=== PATIENT | female | born 1935 | race Caucasian/White ===

== ENCOUNTER → 2018-09-13 13:11 | Outpatient (CLI) | payer OTHER, SELFPAY | PROVIDERS: Family Provider Family Medicine; PCP Family Medicine; Visit Provider Physician Assistant | DX: L02.31 Cutaneous abscess of buttock (principal) | CPT/HCPCS: 87070; 87075; 87077; 87147; 87186; 87205 ==

== ENCOUNTER 2020-08-09 22:01 | Observation (INO) | payer OTHER, SELFPAY ==
[2020-08-09 22:05] VITALS: BP 154/81; PULSE 74; RESP 22; TEMP 36.5; O2SAT 97
--- NOTE | 2020-08-09 22:06 | DI.RAD.S_ITS ---
PROCEDURE: XR CHEST 1V INDICATIONS: syncope TECHNIQUE: One view of the chest was acquired. COMPARISON: None. FINDINGS: Surgical changes and devices: None. Lungs and pleura: Lungs are clear. No pleural effusions or pneumothorax. Mediastinum: Mediastinal contours appear normal. Heart size is normal. Bones and chest wall: No suspicious bony lesions. Overlying soft tissues appear unremarkable. IMPRESSION: No acute cardiopulmonary abnormality. This report is concordant with the overnight preliminary interpretation. Dictated by: Seth Medrano M.D. on 08/10/2020 at 7:18 Approved by: Seth Medrano M.D. on 08/10/2020 at 7:18
--- NOTE | 2020-08-09 22:21 | ED_ITS ---
HPI - Syncope General Chief Complaint: Syncope Stated Complaint: Syncope Time Seen by Provider: 08/09/20 22:06 Source: patient and EMS Mode of arrival: EMS Limitations: no limitations History of Present Illness HPI narrative: 85-year-old female nonsmoker with history of hypertension presents by EMS for evaluation of a syncopal episode which occurred just prior to arrival. She was in her normal state of health up until the event and had been feeling just fine. She was out to dinner with family and seated at a table when she began to feel lightheaded, became diaphoretic, clammy and family friend eased her to the floor. She did completely lose consciousness briefly and it is reported that she was essentially back at her baseline by the time she was eased to the floor. There was no fall or injury. She did lose control of her bladder. She denies any new medications or dietary change. She had 1 beer minda ier in the day. She denies any recent exertional fatigue, shortness of breath, chest pain, diaphoresis or other. She denies any recent nausea, vomiting or diarrhea. She has had no fever or chills. To have been unprovoked as she was not changing position, coughing, in pain. MD complaint: loss of consciousness Onset (ago): minute(s) -: second(s) Description of event: incontinence Prodromal symptoms: lightheaded and diaphoresis Witnessed: yes - by bystander Context: at rest Injuries sustained associated with event: none Current symptoms: none Treatments prior to arrival: none Related Data Home Medications Medication Instructions Recorded Confirmed [GLUCOSAMINE] #0 09/15/10 09/13/18 MULTIVITAMIN (One Daily #0 11/25/10 09/13/18 Multivitamin) [MELATONIN] #0 12/25/10 09/13/18 acetaminophen [Tylenol Extra 500 mg KS Q4HP #0 01/15/13 09/13/18 Strength] amlodipine [Norvasc] 10 mg PO QDAY #0 01/15/13 09/13/18 losartan 100 mg PO QDAY #0 01/15/13 09/13/18 cholecalciferol (vitamin D3) 1,000 u PO QDAY #0 06/21/17 09/13/18 [Vitamin D3] naproxen sodium [Aleve] 220 mg PO BIDCC PRN #0 06/21/17 09/13/18 Allergies Allergy/AdvReac Type Severity Reaction Status Date / Time hydrochlorothiazide Allergy Unknown HANDS/FEET Verified 09/13/18 12:24 [HYDROCHLOROTHIAZIDE] PEELED Sulfa (Sulfonamide Allergy Unknown RASH Verified 09/13/18 12:24 Antibiotics) [SULFA (SULFONAMIDE ANTIBIOTICS)] Review of Systems Constitutional Constitutional: Denies chills, Denies fatigue, Denies fever(s), Denies frequent falls, Denies lethargy and Denies weakness Eyes Eyes: Denies change in vision, Denies eye discharge, Denies irritation and Denies loss of vision ENT Ears, Nose, Mouth, and Throat: Denies change in voice, Denies dizziness, Denies neck pain, Denies sore throat and Denies throat swelling Cardiovascular Cardiovascular: Denies chest pain, Reports syncope, Denies irregular heart rhythm, Denies lightheadedness, Denies palpitations, Denies dyspnea, Denies dy spnea on exertion and Denies orthopnea Respiratory Respiratory: Denies cough, Denies dyspnea, Denies dyspnea on exertion and Denies wheezing Gastrointestinal Gastrointestinal: Denies abdominal pain, Denies change in bowel habits, Denies diarrhea, Denies nausea and Denies vomiting Musculoskeletal Musculoskeletal: Denies neck pain and Denies numbness Integumentary/Breasts Skin/Breast: Denies pruritus, Denies erythema, Denies rash and Denies wounds Neurologic Neurologic: Denies behavioral changes, Denies confusion, Denies dizziness, Reports syncope, Denies frequent falls, Denies loss of vision, Denies numbness and Denies weakness Psychiatric Psychiatric: Denies anxiety, Denies behavioral changes, Denies confusion, Denies depression, Denies homicidal ideation and Denies suicidal ideation Endocrine Endocrine: Denies fatigue, Denies flushing and Denies palpitations Hematologic/Lymphatic Hematologic/Lymphatic: Denies easy bruising Allergic/Immunologic Allergic/Immunologic: Denies urticaria, Denies throat swelling and Denies wheezing Patient History Social History Smoking Status: Never smoker Smoking Status: Never smoker Exam Narrative Exam Narrative: GENERAL: [85] year old patient appears stated age. Well- nourished, well-developed patient, in mild distress. GCS 15 HEAD: Atraumatic. Normocephalic. EYES: Pupils equal round and reactive. Extraocular motions intact. No scleral icterus. No injection or drainage. ENT: Nose without bleeding, purulent drainage. Throat without erythema, tonsillar hypertrophy or exudate. Airway patent. NECK: Trachea midline. Non tender CARDIOVASCULAR: Regular rate and rhythm without murmurs, gallops, or rubs. RESPIRATORY: Clear to auscultation. Breath sounds equal bilaterally. No wheezes, rales, or rhonchi. GASTROINTESTINAL: Abdomen soft, non-tender, nondistended. EXTREMITIES: No edema or joint tenderness. BACK: Nontender without deformity or crepitance. No flank tenderness. NEURO: AOx3. SKIN: No rash or erythema of visible areas Initial Vital Signs Initial Vital Signs: Vital Signs Temperature 97.7 F 08/09/20 22:05 Pulse Rate 74 08/09/20 22:05 Respiratory Rate 22 08/09/20 22:05 Blood Pressure 154/81 H 08/09/20 22:05 Pulse Oximetry 97 08/09/20 22:05 Course Orders Ordered: ED Orders 08/09/20 21:40 Complete Blood Count AUTO DIFF Stat Comprehensive Metabolic Panel Stat NT-proBNP (BNP-Adult 18+) Stat Prothrombin Time INR Stat Troponin & CK Cardiac Panel Stat 08/09/20 22:06 XR chest 1V Stat EKG-12 Lead Stat 08/09/20 22:15 COVID19 - ADMIT (WELLNESS NURSE swab/PCR) Stat Potassium Chloride 40 meq/ (Sodium Chloride) 520 mls @ 130 mls/hr IV NOW ONE Stop: 08/10/20 02:45 Last Admin: 08/09/20 22:56 Dose: 130 mls/hr Documented by: Vital Signs Vital signs: Vital Signs - 8 hr 08/09/20 22:05 Temperature 97.7 F Pulse Rate 74 Respiratory Rate 22 Blood Pressure 154/81 H Pulse Oximetry 97 MDM - Syncope Lab Data Result diagrams: 08/09/20 21:40 08/09/20 21:40 Labs: Lab Results 08/09/20 08/09/20 08/09/20 Range/Units 21:40 21:40 21:40 WBC 10.9 (4.5-11.0) X10^3/uL RBC 4.60 (4.0-5.2) X10^6/uL Hgb 14.0 (12.0-16.0) g/dL Hct 40.4 (36-46) % MCV 87.7 (80-100) fL MCH 30.5 (26-34) PG MCHC 34.8 (30-36) % RDW 13.7 (11.6-14.8) % Plt Count 344 (150-400) X10^3/uL Neut % (Auto) 59.6 (50-75) % Lymph % (Auto) 30.1 (25-40) % [place] % (Auto) 7.9 (3-14) % Eos % (Auto) 1.6 L (2-4) % Baso % (Auto) 0.8 (0-2) % Neut # (Auto) 6500 (7063-1769) /uL Lymph # (Auto) 3300 (7361-5589) /uL [place] # (Auto) 900 (0-900) /uL Eos # (Auto) 200 (0-450) /uL Baso # (Auto) 100 (0-100) /uL PT 11.8 (10.1-12.7) SECONDS INR 1.0 (0.9-1.3) Sodium 137 (137-145) mmol/L Potassium 3.1 L (3.4-5.1) mmol/L Chloride 96 L (98-107) mmol/L Carbon Dioxide 31 (22-32) mmol/L BUN 26 H (7-17) mg/dL Creatinine 0.95 (0.52-1.04) mg/dL Estimated GFR 56.0 L (>60) mL/min BUN/Creatinine Ratio 27.4 H (6-22) Glucose 114 H (80-110) mg/dL Calcium 10.3 H (8.4-10.2) mg/dL Total Bilirubin 0.2 (0.2-1.3) mg/dL AST 31 (14-36) IU/L ALT 19 (<35) IU/L Alkaline Phosphatase 67 (38-126) U/L Total Creatine Kinase 98 (30-135) U/L CK-MB (CK-2) TNP CK-MB (CK-2) Rel Index TNP Troponin I < 0.012 (0.01-0.034) ng/mL NT-Pro-B Natriuret Pep 216 (<450) pg/mL Total Protein 7.1 (6.3-8.2) g/dL Albumin 4.4 (3.5-5.0) g/dL Globulin 2.7 (1.7-4.1) g/dL Albumin/Globulin Ratio 1.6 (1.0-2.8) MDM Narrative Medical decision making narrative: Patient will require hospitalization given l ack of any obvious provocation of her syncopal episode. She states that she has been her normal state of health, was sitting still at dinner when she collapsed. There was no change in position or other provoking event. She will require telemetry and likely echocardiogram Discharge Plan Departure Patient Disposition: Admitted as Observation Clinical Impression: Syncope and collapse
[2020-08-09 22:22] LABS: Add Manual Diff / Slide Review NO; Basophils Absolute Auto 100 /uL (0-100); Basophils Percent Auto 0.8 % (0-2); Eosinophils Absolute Auto 200 /uL (0-450); Eosinophils Percent Auto 1.6 % (2-4); Hematocrit 40.4 % (36-46); Lymphocytes Absolute Auto 3300 /uL (1100-4500); Lymphocytes Percent Auto 30.1 % (25-40); Mean Corpuscular HGB Conc 34.8 % (30-36); Mean Corpuscular Hemoglobin 30.5 PG (26-34); Mean Corpuscular Volume 87.7 fL (80-100); Monocytes Absolute Auto 900 /uL (0-900); Monocytes Percent Auto 7.9 % (3-14); Neutrophils Absolute Auto 6500 /uL (1500-7000); Neutrophils Percent Auto 59.6 % (50-75); Platelet Count 344 X10^3/uL (150-400); Red Cell Distribution Width 13.7 % (11.6-14.8); White Blood Cell Count 10.9 X10^3/uL (4.5-11.0)
[2020-08-09 22:30] LABS: Prothrombin Time 11.8 SECONDS (10.1-12.7)
[2020-08-09 22:34] LABS: Alanine Aminotransferase 19 IU/L (<35); Albumin 4.4 g/dL (3.5-5.0); Albumin Globulin Ratio 1.6 (1.0-2.8); Alkaline Phosphatase 67 U/L (38-126); Aspartate Aminotransferase 31 IU/L (14-36); BUN Creatinine Ratio 27.4 (6-22); Bilirubin Total 0.2 mg/dL (0.2-1.3); Blood Urea Nitrogen 26 mg/dL (7-17); Calcium 10.3 mg/dL (8.4-10.2); Carbon Dioxide 31 mmol/L (22-32); Chloride 96 mmol/L (98-107); Creatine Kinase 98 U/L (30-135); Globulin 2.7 g/dL (1.7-4.1); Glucose 114 mg/dL (80-110); HEMOLYSIS < 15 (0-50); Potassium 3.1 mmol/L (3.4-5.1); Sodium 137 mmol/L (137-145); Total Protein 7.1 g/dL (6.3-8.2)
[2020-08-09 22:46] LABS: NT-proBNP (BNP-Adult 18+) 216 pg/mL (<450); Troponin I < 0.012 ng/mL (0.01-0.034)
[2020-08-09] MEDS: POTASSIUM CHLORIDE 40 MEQ in SODIUM CHLORIDE 0.9% 500 ML 130 ML IV (22:56)
[2020-08-09 23:16] LABS: COVID19 - ADMIT (NP swab/PCR) Negative (Negative)
[2020-08-09 23:58] VITALS: BP 144/111; PULSE 76; RESP 27; O2SAT 95
[2020-08-10] VITALS: BP 143/81; PULSE 75; RESP 22; O2SAT 94
--- NOTE | 2020-08-10 | DI.ECHO.S_ITS ---
[facility]---------+ [facility] +---------+ : : [address] : : : : [id number] : : : : Phone: [phone]+ Echocardiogram Report + + :Name: JOSESITO AVENDAÑO Study Date: 08/10/2020 Height: 62.5 in: :[facility] ReadingLocation: Weight: 167 lb : : Gender: Female BSA: 1.8 m2 : :: 1935 Age: 85 yrs BP: 154/86 mmHg: :Reason For Study: SYNCOPE WITH INCONTINENCE : :Ordering Physician: JOIE, : :MAURI Performed By: Daniela Golden : :Referring: MAURI SALTER : + + Interpretation Summary 1) Normal left ventricular thickness, size, wall motion, and systolic function (EF 60-65%). 2) Normal right ventricular size and function. 3) No significant valvular abnormalities. 4) No prior Echo available for comparison. Procedure: A two-dimensional transthoracic echocardiogram with color flow and Doppler was performed. The study quality was technically adequate. There is no prior echocardiogram noted for this patient. The patient was in sinus rhythm with heart rates between 54-67 bpm during the exam. Left Ventricle: The left ventricle is normal in size and wall thickness. The ejection fraction is estimated to be 60-65%. Left ventricular systolic function appears normal without focal wall motion abnormalities. Diastolic parameters suggest a relaxation abnormality of the left ventricle, consistent with probable normal filling pressures. Right Ventricle: The right ventricle is normal in size and function. Atria: The left atrium is moderately dilated. The right atrium is moderately dilated. There is no Doppler evidence for an interatrial shunt. Mitral Valve: The mitral valve is normal in structure and function. There is mild mitral regurgitation. Aortic Valve: The aortic valve is trileaflet. The aortic valve opens well. There is no aortic valve stenosis. No aortic regurgitation is present. Tricuspid Valve: The tricuspid valve is normal in structure and function. There is mild tricuspid regurgitation. The right ventricular systolic pressure is estimated to be at least 34 mmHg based on an estimated right atrial pressure of 3 mm Hg. Pulmonic Valve: The pulmonic valve leaflets are thin and pliable; valve motion is normal. There is mild pulmonic regurgitation. Great Vessels: The aortic root is normal size. The dimensions of the ascending aorta are normal. The IVC is of normal diameter and collapses greater than 50% with a sniff. This suggests a low right atrial pressure of 3 mm Hg. Pericardium/ Pleura There is no pericardial effusion. There is no pleural effusion. MMode/2D Measurements & Calculations LVIDd: 4.7 cm LVOT diam: 2.0 cm LVIDs: 2.9 cm Ao root diam: 3.0 cm FS: 37.7 % asc Aorta Diam: 3.6 cm EPSS: 0.89 cm IVSd: 0.98 cm LVPWd: 0.88 cm LV encinas. diameter/BSA (cm/m^2): 2.6 LV sys. diameter/BSA (cm/m^2): 1.6 LA A2 area: 26.0 cm2 RA long axis: 5.6 cm LA A4 area: 18.2 cm2 RA area: 21.1 cm2 LA length (vol): 5.6 cm RA vol: 67.3 ml LA vol: 72.1 ml RA : 37.8 ml/m2 LA vol index: 40.5 ml/m2 IVC diam: 1.5 cm RVD1 (basal): 3.2 cm TAPSE: 2.4 cm Doppler Measurements & Calculations Ao V2 max: 117.1 cm/sec LVOT Max Massimo: 101.8 cm/sec Ao V2 mean: 80.0 cm/sec LV V1 max P.1 mmHg Ao max P.5 mmHg LV V1 VTI: 22.7 cm Ao mean P.9 mmHg GISSELLE(I,D): 2.5 cm2 Ao V2 VTI: 27.4 cm GISSELLE(V,D): 2.6 cm2 sev ratio: 0.83 GISSELLE indexed to BSA (cm^2/m^2): 1.4 MV E max massimo: 62.0 cm/sec TR max massimo: 276.9 cm/sec MV A max massimo: 105.5 cm/sec TR max P.7 mmHg MV E/A: 0.59 PA V2 max: 54.3 cm/sec Med Peak E' Massimo: 4.7 cm/sec PA V2 mean: 36.2 cm/sec E/E' med: 13.1 PA mean P.62 mmHg Lat Peak E' Massimo: 9.0 cm/sec PA pr(Accel): 32.8 mmHg E/E' lat: 6.9 E/e' average: 10.0 MV dec time: 0.21 sec SVLVOT): 68.5 ml Reading Physician:01:10 PM
--- NOTE | 2020-08-10 00:11 | P.HP_ITS ---
History of Present Illness History of Present Illness Date Patient Seen: 08/10/20 Time Patient Seen: 00:11 Chief complaint: Syncope Narrative: 85-year-old nonsmoker female with history of hypertension is admitted for observation from the ED status post syncopal episode during a family potluck dinner in which she was eating richer/saltier foods than normal. Reports that she was in her usual state of health up until the event and had been feeling just fine. Had 1 beer about 1 hour before. While seated at the table, she began to feel lightheaded, became diaphoretic, clammy, and then briefly, lost consciousness. A family friend sitting next to her, gently eased her to the floor and by the time she reached the floor, she was back at her baseline. She was noted to be incontinent of urine during the event. Reports that the incident was unprovoked with no coughing, bearing down, recent bowel movement, or change in position. Denies any chest pain. No recent dietary or medication changes other than the rich food at the dinner. No recent travel. She had not been short of breath, fatigued, or otherwise diaphoretic. No nausea, vomiting, or diarrhea. No fever chills. She had no tonic-clonic movements. No history of seizure disorder. Vital signs upon admission to the ED included a temperature of 97.7?, pulse 74, respirations 22, blood pressure 154/81, O2 saturation 92% on room air. Lab workup remarkable for a low potassium at 3.1 that was repleted. She was dehydrated with a BUN of 26 and a glucose of 114. Chest x-ray, EKG, and troponin were notably negative. Reports that she is feeling fine this morning, back to her baseline. Uneventful night. Past medical history: Hypertension Hyperlipidemia Nocturia Daytime somnolence Arthritis Vertigo Insomnia Past surgical history: Appendectomy Total knee arthroplasty Cataract extraction Family history: Mother: Hypertension Social history: to Derek, 12 years of education. Patient History Family & Social History Safety & Behavioral: Feels Safe in Current Yes Environment Been Physically Hurt or No Threatened By a Person Tobacco & Substance use: Smoking Status Never smoker alcohol intake frequency 0-2 drinks per day Substance Use Type does not use Meds Home Medications and Allergies Home Medications Medication Instructions Recorded Confirmed Type acetaminophen [Tylenol Extra 500 mg [place] Q4HP #0 01/15/13 08/10/20 History Strength] amlodipine [Norvasc] 10 mg PO QDAY #0 01/15/13 08/10/20 History losartan 25 mg PO QDAY #0 01/15/13 08/10/20 History hydrochlorothiazide 50 mg PO DAILY 08/10/20 08/10/20 History Allergies Allergy/AdvReac Type Severity Reaction Status Date / Time hydrochlorothiazide Allergy Unknown HANDS/FEET Verified 09/13/18 12:24 [HYDROCHLOROTHIAZIDE] PEELED Sulfa (Sulfonamide Allergy Unknown RASH Verified 09/13/18 12:24 Antibiotics) [SULFA (SULFONAMIDE ANTIBIOTICS)] Review of Systems Review of Systems ROS: Yes All systems reviewed with the patient and are negative except as otherwise documented Exam Vital Signs (past 8 hours): - 08/09/20 22:05 08/09/20 23:58 08/10/20 00:00 Temperature 97.7 F Pulse Rate 74 76 75 Respiratory Rate 22 27 H 22 Blood Pressure 154/81 H 144/111 H 143/81 H Pulse Oximetry 97 95 94 Oxygen Delivery Method Room Air Narrative Exam Narrative: GENERAL: Alert and oriented, appearing stated age and in no acute distress. HEENT: Head normocephalic/atraumatic. Pupils equal, round, and reactive to l ight and accomodation. Extraocular muscles intact. Tympanic membranes clear. Nasal mucosa moist, septum midline. Oral mucosa moist, no lesions. Neck soft and supple, no lymphadenopathy. LUNGS: Clear to ausculation bilaterally, no wheezes, rhonchi or rales. CV: Normal S1 and S2 with regular rate and rhythm, no audible murmurs, rubs or gallops. ABDOMEN: Soft, non-tender, non-distended, no organomegaly. Positive bowel sounds. EXTREMITIES: No clubbing, cyanosis, or edema. NEURO: Cranial nerves II through XII grossly intact, no focal deficits. PSYCH: Alert and oriented x 3. SKIN: No concerning lesions. Objective Labs Result Diagrams: 08/10/20 05:31 08/10/20 05:31 Labs: Laboratory Results - last 24 hr 08/09/20 08/09/20 08/09/20 21:40 21:40 21:40 WBC 10.9 RBC 4.60 Hgb 14.0 Hct 40.4 MCV 87.7 MCH 30.5 MCHC 34.8 RDW 13.7 Plt Count 344 Neut % (Auto) 59.6 Lymph % (Auto) 30.1 [place] % (Auto) 7.9 Eos % (Auto) 1.6 L Baso % (Auto) 0.8 Neut # (Auto) 6500 Lymph # (Auto) 3300 [place] # (Auto) 900 Eos # (Auto) 200 Baso # (Auto) 100 PT 11.8 INR 1.0 Sodium 137 Potassium 3.1 L Chloride 96 L Carbon Dioxide 31 BUN 26 H Creatinine 0.95 Estimated GFR 56.0 L BUN/Creatinine Ratio 27.4 H Glucose 114 H Calcium 10.3 H Total Bilirubin 0.2 AST 31 ALT 19 Alkaline Phosphatase 67 Total Creatine Kinase 98 CK-MB (CK-2) TNP CK-MB (CK-2) Rel Index TNP Troponin I < 0.012 NT-Pro-B Natriuret Pep 216 Total Protein 7.1 Albumin 4.4 Globulin 2.7 Albumin/Globulin Ratio 1.6 SARS-CoV-2 (PCR) 08/09/20 22:15 WBC RBC Hgb Hct MCV MCH MCHC RDW Plt Count Neut % (Auto) Lymph % (Auto) [place] % (Auto) Eos % (Auto) Baso % (Auto) Neut # (Auto) Lymph # (Auto) [place] # (Auto) Eos # (Auto) Baso # (Auto) PT INR Sodium Potassium Chloride Carbon Dioxide BUN Creatinine Estimated GFR BUN/Creatinine Ratio Glucose Calcium Total Bilirubin AST ALT Alkaline Phosphatase Total Creatine Kinase CK-MB (CK-2) CK-MB (CK-2) Rel Index Troponin I NT-Pro-B Natriuret Pep Total Protein Albumin Globulin Albumin/Globulin Ratio SARS-CoV-2 (PCR) Negative Assessment & Plan Assessment & Plan narrative: 1. Syncope, suspect postprandial vasovagal syncope versus metabolic syncope due to hypokalemia versus cardiac syncope Plan: Will rule out acute coronary syndrome with serial cardiac enzymes. Echo in the morning to look at any underlying structural heart disease. Continuous telemetry. Repeat labs in the morning. Will proceed with stress test if needed. 2. Hypertension, chronic Plan: Continue home medications of losartan 25 mg p.o. q.day and amlodipine 10 mg p.o. q.day. 3. Hypokalemia, new Plan: Will replete. BMP in the morning. 4. Hyperlipidemia, chronic Plan: Patient declines statin. Will follow low-cholesterol diet. Code: Full DVT prophylaxis: SCDs Code: Negative Disposition: Anticipate 1 night. Quality MIPS - Admit Advanced Care Plan / Current Medications Measures: #47 ? Advanced Care Plan Clinician documentation instruction: document at admission. [] I confirmed that the patient's Advance Care Plan is present, code status is documented, or surrogate decision maker is listed in the patient?s medical record. [SATISFIES MIPS PERFORMANCE] If Yes, Stop Here [] The patient?s Advance Care plan is not present because: (select) [MIPS PERFORMANCE EXCEPTION/EXCLUSION] [] I confirmed today that the patient does not wish or was not able to name a surrogate decision maker or provide an Advance Care Plan. [] Hospice care is currently being provided or has been provided this calendar year [] I did NOT confirm today the presence of an Advance Care Plan or surrogate decision maker documented within the patient's medical record. [DOES NOT SATISFY MIPS PERFORMANCE] #130 - Documentation of Current Medications in the Medical Record Clinician documentation instruction: use macro the first time you see a patient. [] I have utilized all available immediate resources to obtain, update, or review the patient?s current medications. [SATISFIES MIPS PERFORMANCE] If Yes, Stop Here [] The patient is not eligible for medication reconciliation; the patient is in an emergent medical situation where delaying treatment would jeopardize the patient?s health. [MIPS PERFORMANCE EXCEPTION/EXCLUSION] [] I did NOT confirm, update or review the patient's current list of medications today. [DOES NOT SATISFY MIPS PERFORMANCE] MIPS - CL Central Venous Catheter Placement Measure: #76 ? Prevention of Central Venous Catheter (CVC) ? Related Bloodstream Infection Clinician documentation instruction: use macro every time you place a central line. [] All elements of Maximal Sterile Barrier Technique, including hand hygiene, skin prep, and sterile ultrasound technique (if used) were followed. [SATISFIES MIPS PERFORMANCE] If Yes, Stop Here [] If ?No?, the medical reason all elements were NOT used for medical reason [] (ex. emergent condition). [] Maximal Sterile Barrier Technique was not followed, no reason provided [DOES NOT SATISFY MIPS PERFORMANCE] MIPS - DC Heart Failure Measures: #5 - Heart Failure (HF): Angiotensin-Converting Enzyme (RUBIN) Inhibitor or Angiotensin Receptor Nicolasa (ARB) Therapy for Left Ventricular Systolic Dysfunction (LVSD) and #8 - Heart Failure (HF): Beta-Nicolasa Therapy for Left Ventricular Systolic Dysfunction (LVSD) Clinician documentation instruction: use macro at every CHF discharge. [] The patient has current or prior documentation of left ventricular ejection fraction (LVEF) less than 40%, or moderate or severely depressed left ventricular systolic function. Answer both: [SATISFIES MIPS PERFORMANCE] [] The patient was prescribed or already taking an Angiotensin-Converting Enzyme (RUBIN) Inhibitor, or Angiotensin Receptor Nicolasa (ARB). [] The patient was prescribed or already taking a beta-nicolasa. If Yes to Both, Stop Here [] Patient not prescribed/taking: [MIPS PERFORMANCE EXCEPTION/EXCLUSION] [] RUBIN or ARB for medical/patient/system reason(s) including [] (ex. allergy, intolerance, contraindication) [] Beta-nicolasa for medical/patient/system reason(s) including [] (ex. allergy, intolerance, contraindication) [] Patient not prescribed/taking: [DOES NOT SATISFY MIPS PERFORMANCE] [] RUBIN or ARB, no reason given [] Beta-nicolasa, no reason given
[2020-08-10 00:20] VITALS: BP 154/86; PULSE 81; RESP 18; TEMP 36.6; O2SAT 97
--- NOTE | 2020-08-10 00:41 | PC.ADMIT ---
[address] [place] [address] Admission Note: Pt arrived to unit without issues. Alert and oriented x4. SBA to bed from stretcher. Pt steady on feet and reports no dizziness or light headedness. No complaints of pain or any chest pain. No skin issues noted. Pt denies any complaints. Spoke with Dr Do, home meds to start AM and not tonight. Pt reports taking own meds at home. The patient,Peyton Garcia,85 y/o, was given written information regarding hospital policies, unit procedures and contact persons. Patient's smoking status: Never smoker. Vital Signs - 8 hr 08/09/20 22:05 08/09/20 23:58 08/10/20 00:00 Temperature 97.7 F Pulse Rate 74 76 75 Respiratory Rate 22 27 H 22 Blood Pressure 154/81 H 144/111 H 143/81 H Pulse Oximetry 97 95 94 08/10/20 00:20 Temperature 97.8 F Pulse Rate 81 Respiratory Rate 18 Blood Pressure 154/86 H Pulse Oximetry 97
[2020-08-10 05:41] VITALS: BP 147/79; PULSE 77; RESP 18; TEMP 36.8; O2SAT 97
[2020-08-10 05:43] LABS: Add Manual Diff / Slide Review NO; Basophils Absolute Auto 100 /uL (0-100); Basophils Percent Auto 0.8 % (0-2); Eosinophils Absolute Auto 0 /uL (0-450); Eosinophils Percent Auto 0.5 % (2-4); Hematocrit 37.2 % (36-46); Hemoglobin 12.8 g/dL (12.0-16.0); Lymphocytes Absolute Auto 1500 /uL (1100-4500); Lymphocytes Percent Auto 15.2 % (25-40); Mean Corpuscular HGB Conc 34.4 % (30-36); Mean Corpuscular Hemoglobin 30.3 PG (26-34); Mean Corpuscular Volume 88.1 fL (80-100); Monocytes Absolute Auto 500 /uL (0-900); Monocytes Percent Auto 5.1 % (3-14); Neutrophils Absolute Auto 7500 /uL (1500-7000); Neutrophils Percent Auto 78.4 % (50-75); Platelet Count 284 X10^3/uL (150-400); Red Blood Cell Count 4.22 X10^6/uL (4.0-5.2); Red Cell Distribution Width 13.8 % (11.6-14.8); White Blood Cell Count 9.6 X10^3/uL (4.5-11.0)
[2020-08-10 05:52] LABS: BUN Creatinine Ratio 34.2 (6-22); Blood Urea Nitrogen 26 mg/dL (7-17); Calcium 9.5 mg/dL (8.4-10.2); Carbon Dioxide 29 mmol/L (22-32); Chloride 101 mmol/L (98-107); Estimated Glomerular Filt Rate > 60.0 mL/min (>60); Glucose 114 mg/dL (80-110); HEMOLYSIS < 15 (0-50); Magnesium 1.9 mg/dL (1.6-2.3); Phosphorous 3.9 mg/dL (2.8-4.1); Potassium 3.8 mmol/L (3.4-5.1); Sodium 137 mmol/L (137-145)
[2020-08-10 06:04] LABS: Troponin I < 0.012 ng/mL (0.01-0.034)
[2020-08-10 07:52] VITALS: BP 164/80; PULSE 66; RESP 18; TEMP 36.3; O2SAT 94
[2020-08-10] MEDS: LOSARTAN 50 MG TABLET 25 MG PO (08:38)
[2020-08-10] MEDS: AMLODIPINE 5 MG TABLET 10 MG PO (08:38)
[2020-08-10 09:00] LABS: Troponin I < 0.012 ng/mL (0.01-0.034)
--- NOTE | 2020-08-10 09:12 | CM.DANOTE ---
Addendum entered by KRYSTAL Delaney 08/10/20 13:51: ADD: Per MD, Echo results showed reduced EF but otherwise unremarkable and labs were normal and pt is medically stable to d/c home today with outpt follow up with PCP. Per PT, recommending safe d/c home with family and outpt PT. Per RN, pt is thankful to be going home today and no concerns at this time. Plan: Patient to d/c home today via family POV and outpt follow up. No further SW needs at this time. KRYSTAL Delaney Original Note: Patient is an 85 year old female who was admitted on 08/09/20 for Syncope. Pt has [facility] for insurance and her PCP is Dr. Suha Do. EMR was reviewed. Per MD, etiology unclear and ordered Echo and possible need for Stress Test. PT ordered and pending. SW met bedside with pt and explained role and pt seemed somewhat groggy but was able to confirm she lives at home in [place] with her and her son Justin lives nearby and is supportive. Pt is quite active and independent at baseline and drives and states she is retired but enjoyed working and now sometimes has to force herself to stay in a routine and get out of bed in the morning before 1030. Pt denies depression but confirms retired lifestyle is sometimes an adjustment without any clear daily schedule. Pt denies any hx of HH or SNF and preference is home via her or son's POV when stable for discharge. Pt states her spouse and son are her DPOA's. Plan: SW to follow after Echo to determine any further identified needs and confirm pt safe for d/c home with family. KRYSTAL Delaney Discharge Planning/Care Management CM Discharge Assessment Start: 08/10/20 09:11 Freq: Status: Active Protocol: Document 08/10/20 09:11 BF (Rec: 08/10/20 09:12 [id number]) Discharge Planning Assessment Assigned Sales Representatives KRYSTAL Smith DPOA/Assigned Designee Name spouse Derek and son Justin Contact Information [phone] Advance Directives? No Advance Directives on File No History Provided By Patient,Medical Record Has Patient been admitted in last 30 No days? Prior Living Arrangements House Household Members spouse Type of transporation used prior to Drives own vehicle admit Independent with ADL's Yes Is patient alert and oriented? Yes Caregiver for Another No Barriers to Discharge No Discharge Plan Home Transportation Arrangement Spouse or son can provide transport at d/c Additional Comment Pending Echo and possible need for Stress Test Whiteboard Updated in Patient Room with Yes name and ext. # of Sales Representatives Review Status In Process Please Provide Date Initial DC 08/10/20 Assessment Was Performed Next Review Type Continued Stay Review
[2020-08-10 09:30] VITALS: O2SAT 96
[2020-08-10 11:24] VITALS: BP 121/79; PULSE 67; RESP 18; TEMP 36.6; O2SAT 95
--- NOTE | 2020-08-10 11:39 | PT.IIE ---
Physical Therapy Inpatient Evaluation/Re-Eval M1 PT/OT-IP Prior Functional Status Start: 08/10/20 09:25 Freq: NEEDED Status: Active Protocol: Document 08/10/20 11:39 AW (Rec: 08/10/20 12:09 AW [id number]) Medical Review Prior Functional Status Medical History Reviewed Yes Communication WNL Mobility and Gait Pt reports independent mobility without AD. She lives near [place] and [place] to the [place]. She denies any falls in the past two years. Activities of Daily Living and IADL's Independent with all ADLs and IADLs. Pt drives, manages her own medications, and pays the bills. Prior Functional Level (Other details) History of L TKA ~6 years ago. Pt reports less than satisfactory rehab. Social History Household Members spouse Living Arrangements House Number of Floors (Floors) One Floor Number of Stairs To Enter/Railing? 2 IGGY without railing Home Environment High Toilet,Tub/Shower Home Equipment Straight Cane Employment Status Retired Additional Social History Comment Pt and her are retired . They live in [place] and have supportive family nearby M2 PT-IP Current Condition Start: 08/10/20 09:25 Freq: NEEDED Status: Active Protocol: Document 08/10/20 11:39 AW (Rec: 08/10/20 12:09 AW [id number]) Physical Therapy Current Condition Current Condition Evaluation Date 08/10/20 Treatment Diagnosis syncope, impaired dynamic balance Onset Date 08/09/20 M3 PT-IP Subjective Start: 08/10/20 09:25 Freq: NEEDED Status: Active Protocol: Document 08/10/20 11:39 AW (Rec: 08/10/20 12:09 AW [id number]) Subjective Physical Therapy Visit Type Type Initial Evaluation Visit Start Time 11:19 Visit Stop Time 11:39 Total Visit Minutes 20 Notes Pt's spouse present throughout evaluation Number of J2EE CONSULTANT Visits 0 Physical Therapy Visit Comments Patient Comments Pt is willing to participate with PT Patient Goals Return home Therapy Pain Assessment Pain When Pain Assessed During Mobility Pain Present Pain Present Pain Reported Location right knee Scale Used not quantified Pain Management Techniques Distraction M4 PT-IP Mobility and Gait Start: 08/10/20 09:25 Freq: NEEDED Status: Active Protocol: Document 08/10/20 11:39 AW (Rec: 08/10/20 12:09 AW [id number]) PT-Bed Mobility Assessment Supine to Sit Supine to Sit Independent Scooting Scooting to Edge of Bed Independent PT-Transfer Assessment Sit to and From Stand Sit to and from Stand Independent Equipment Transfer Assistive Device Gait Belt Orthotic/Prosthetic Devices or Brace: No Transfers Transfer Destination Chair Transfer Technique Stand Step Pivot Transfer Ability Level of Assist Independent Comments Mobility Comments Pt was lying in the bed as PT arrived. Orthostatic BP negative and documented separately. She completed all bed mobility and transfers independently. She ambulated in the halls a total of 250 feet SBA. On return to the room, pt positioned herself in the chair where she was left to visit with her spouse. Gait Assessment Gait Gait Assistance Required: Standby Assistance Distance (Feet) 250 Assistive Devices Assistive Device Gait Belt Orthotic/Prosthetic Devices or Brace: No Gait Deviations General Gait Pattern Antalgic,Decreased Stride Length,Lateral Trunk Lean, Narrow Based Gait,Step-to Gait Factors Limiting Gait Function Factors Limiting Gait Function Decreased Strength,Pain,Poor Balance Comments Gait Comments Pt ambulated on level surface SBA. She scored 10/12 on 4- item DGI with single points deducted for horizontal and vertical head turns. No LOB observed. Stair Climbing Assessment Comments Stair Climbing Comments Not assessed. PT-Balance Assessment Sitting Balance and Reactions Static Sitting Balance Ability Normal Dynamic Sitting Balance Ability Normal Standing Balance and Reactions Static Standing Balance Ability Good Dynamic Standing Balance Ability Good Device Used none Balance Tests Romberg WNL EO and EC Functional Assessments Functional Tests Dynamic Gait Index 4-item DGI: 10/12 M5 PT-IP Objective Assessments Start: 08/10/20 09:25 Freq: NEEDED Status: Active Protocol: Document 08/10/20 11:39 AW (Rec: 08/10/20 12:09 AW [id number]) Orientation Orientation/Cognition Level of Alertness Alert Orientation Name,Date,Day of Week,Place, Situation Language Function Ability No Deficits Noted Safety Awareness Understands Safety Issues Memory Description No Deficits Noted Gross Range of Motion Lower Extremity ROM Assessment Within Functional Limits Strength Lower Extremity Strength Assessment Bilaterally Impaired Hip B 4/5 Knee L 4+/5; R 4-/5 due to pain Ankle 4+/5 Sensation Assessment Sensation Gross Sensation WNL M6 PT-IP Treatment Start: 08/10/20 09:25 Freq: NEEDED Status: Active Protocol: Document 08/10/20 11:39 AW (Rec: 08/10/20 12:09 AW [id number]) Physical Therapy Treatment Education Education Provided Safety Other Treatments Other Treatment Performed Educated pt on role of PT and balance systems integration. M7 PT-IP Assessment and Plan Start: 08/10/20 09:25 Freq: NEEDED Status: Active Protocol: Document 08/10/20 11:39 AW (Rec: 08/10/20 12:09 AW [id number]) PT Summary Assessment and Plan Potential Rehabilitation Potential Good Status of Condition at Evaluation Stable Summary Impairments Pain,Strength,Balance,Gait Assessment Summary Peyton is an active 85 yo woman seen for PT evaluation with admitting diagnosis of syncopal episode x 1. Pt is independent in all regards at baseline. Orthostatic BP was negative. She required SBA for gait and scored 10/12 on 4- item Dynamic Gait Index wtih primary limitation of right knee pain. Pt is safe to discharge home and would benefit from outpatient PT to address knee pain and dynamic balance. Frequency of Treatment Frequency Of Treatment Discharge Recommendations To Nursing Amount of Assist Needed Standby Assistance Discharge Recommendations PT Discharge Recommendations Home,Outpatient PT Transportation Needs at Discharge Private Vehicle
--- NOTE | 2020-08-10 13:24 | PM.DS.1 ---
History of Present Illness History of Present Illness Date Patient Seen: 08/10/20 Time Patient Seen: 13:24 Chief complaint: Syncope Narrative: 85-year-old nonsmoker female with history of hypertension is admitted for observation from the ED status post syncopal episode during a family potluck dinner in which she was eating richer/saltier foods than normal. Reports that she was in her usual state of health up until the event and had been feeling just fine. Had 1 beer about 1 hour before. While seated at the table, she began to feel lightheaded, became diaphoretic, clammy, and then briefly, lost consciousness. A family friend sitting next to her, gently eased her to the floor and by the time she reached the floor, she was back at her baseline. She was noted to be incontinent of urine during the event. Reports that the incident was unprovoked with no coughing, bearing down, recent bowel movement, or change in position. Denies any chest pain. No recent dietary or medication changes other than the rich food at the dinner. No recent travel. She had not been short of breath, fatigued, or otherwise diaphoretic. No nausea, vomiting, or diarrhea. No fever chills. She had no tonic-clonic movements. No history of seizure disorder. Vital signs upon admission to the ED included a temperature of 97.7?, pulse 74, respirations 22, blood pressure 154/81, O2 saturation 92% on room air. Lab workup remarkable for a low potassium at 3.1 that was repleted. She was dehydrated with a BUN of 26 and a glucose of 114. Chest x-ray, EKG, and troponin were notably negative. Reports that she is feeling fine this morning, back to her baseline. Uneventful night. Discharge Providers Provider Date of admission: 08/09/20 23:10 Discharge Date: 08/10/20 Consults: 08/10/20 00:06 Consult to Physical Therapy Evaluate & Treat Comment: Physician Instructions: Evaluate and Treat Discharge provider: Suha Do MD Summary Hospital Course Discharge Diagnosis: 1. Syncope, suspect postprandial vasovagal syncope versus metabolic syncope due to hypokalemia 2. Hypertension, chronic 3. Hypokalemia, acute, resolved 4. Hyperlipidemia, chronic Hospital Course: Uneventful course. Serial troponins all negative. Potassium repleted in ED with normal value upon recheck. Echo this morning revealed an ejection fraction of 60-65%, otherwise unremarkable. She feels completely back to baseline with no return of syncope. Suspect vasovagal syncope versus metabolic. Have stopped HCTZ during admission with good control of blood pressure. Plan will be to follow-up on 1 week for blood pressure check and repeat BMP. On day of discharge she is afebrile with stable vital signs throughout. Exam Vital Signs (past 8 hours): - 08/10/20 05:41 08/10/20 07:52 08/10/20 09:30 Temperature 98.3 F 97.3 F L Pulse Rate 77 66 Respiratory Rate 18 18 Blood Pressure 147/79 H 164/80 H Pulse Oximetry 97 94 96 08/10/20 11:24 Temperature 97.8 F Pulse Rate 67 Respiratory Rate 18 Blood Pressure 121/79 Pulse Oximetry 95 Oxygen Delivery Method Room Air Oxygen Flow Rate 0 Narrative Exam Narrative: GENERAL: Alert and oriented, appearing stated age and in no acute distress. HEENT: Head normocephalic/atraumatic. Pupils equal, round, and reactive to light and accomodation. Extraocular muscles intact. Tympanic membranes clear. Nasal mucosa moist, septum midline. Oral mucosa moist, no lesions. Neck soft and supple, no lymphadenopathy. LUNGS: Clear to ausculation bilaterally, no wheezes, rhonchi or rales. CV: Normal S1 and S2 with regular rate and rhythm, no audible murmurs, rubs or gallops. ABDOMEN: Soft, non-tender, non-distended, no organomegaly. Positive bowel sounds. EXTREMITIES: No clubbing, cyanosis, or edema. NEURO: Cranial nerves II through XII grossly intact, no focal deficits. PSYCH: Alert and oriented x 3. SKIN: No concerning lesions. Objective Labs Result Diagrams: 08/10/20 05:31 08/10/20 05:31 Labs: Laboratory Results - last 24 hr 08/09/20 08/09/20 08/09/20 21:40 21:40 21:40 WBC 10.9 RBC 4.60 Hgb 14.0 Hct 40.4 MCV 87.7 MCH 30.5 MCHC 34.8 RDW 13.7 Plt Count 344 Neut % (Auto) 59.6 Lymph % (Auto) 30.1 Iron % (Auto) 7.9 Eos % (Auto) 1.6 L Baso % (Auto) 0.8 Neut # (Auto) 6500 Lymph # (Auto) 3300 Iron # (Auto) 900 Eos # (Auto) 200 Baso # (Auto) 100 PT 11.8 INR 1.0 Sodium 137 Potassium 3.1 L Chloride 96 L Carbon Dioxide 31 BUN 26 H Creatinine 0.95 Estimated GFR 56.0 L BUN/Creatinine Ratio 27.4 H Glucose 114 H Calcium 10.3 H Phosphorus Magnesium Total Bilirubin 0.2 AST 31 ALT 19 Alkaline Phosphatase 67 Total Creatine Kinase 98 CK-MB (CK-2) TNP CK-MB (CK-2) Rel Index TNP Troponin I < 0.012 NT-Pro-B Natriuret Pep 216 Total Protein 7.1 Albumin 4.4 Globulin 2.7 Albumin/Globulin Ratio 1.6 SARS-CoV-2 (PCR) 08/09/20 08/10/20 08/10/20 22:15 05:31 05:31 WBC 9.6 RBC 4.22 Hgb 12.8 Hct 37.2 MCV 88.1 MCH 30.3 MCHC 34.4 RDW 13.8 Plt Count 284 Neut % (Auto) 78.4 H Lymph % (Auto) 15.2 L Iron % (Auto) 5.1 Eos % (Auto) 0.5 L Baso % (Auto) 0.8 Neut # (Auto) 7500 H Lymph # (Auto) 1500 Iron # (Auto) 500 Eos # (Auto) 0 Baso # (Auto) 100 PT INR Sodium Potassium Chloride Carbon Dioxide BUN Creatinine Estimated GFR BUN/Creatinine Ratio Glucose Calcium Phosphorus Magnesium Total Bilirubin AST ALT Alkaline Phosphatase Total Creatine Kinase CK-MB (CK-2) CK-MB (CK-2) Rel Index Troponin I < 0.012 NT-Pro-B Natriuret Pep Total Protein Albumin Globulin Albumin/Globulin Ratio SARS-CoV-2 (PCR) Negative 08/10/20 08/10/20 05:31 08:30 WBC RBC Hgb Hct MCV MCH MCHC RDW Plt Count Neut % (Auto) Lymph % (Auto) Iron % (Auto) Eos % (Auto) Baso % (Auto) Neut # (Auto) Lymph # (Auto) Iron # (Auto) Eos # (Auto) Baso # (Auto) PT INR Sodium 137 Potassium 3.8 Chloride 101 Carbon Dioxide 29 BUN 26 H Creatinine 0.76 Estimated GFR > 60.0 BUN/Creatinine Ratio 34.2 H Glucose 114 H Calcium 9.5 Phosphorus 3.9 Magnesium 1.9 Total Bilirubin AST ALT Alkaline Phosphatase Total Creatine Kinase CK-MB (CK-2) CK-MB (CK-2) Rel Index Troponin I < 0.012 NT-Pro-B Natriuret Pep Total Protein Albumin Globulin Albumin/Globulin Ratio SARS-CoV-2 (PCR) PFSH Social History household members: spouse Smoking Status: Never smoker alcohol intake: current Discharge Plan Discharge orders & Medications Discharge Orders: Discharge (Order); Ordered 08/10/20 Ordered By: Suha Do Prescriptions: Continued acetaminophen [Tylenol Extra Strength] 500 MG tablet 500 mg OK Q4HP Qty: 0 RF: 0 amlodipine [Norvasc] 10 MG tablet 10 mg PO QDAY Qty: 0 RF: 0 losartan 100 MG tablet 25 mg PO QDAY Qty: 0 RF: 0 Discontinued hydrochlorothiazide 50 mg tablet 50 mg PO DAILY RF: 0 Diet/Activity/Treatments Diet: Low-sodium Activity: As tolerated. Skin/Wound/Dressing Care Report to your healthcare provider any signs of infection, such as:: chills, fever and increased pain Discharge Data Attending Provider: Suah Do VTE Deep Vein Thrombosis/Pulmonary Embolism Present on Admission: No MIPS - Admit Advanced Care Plan / Current Medications Measures: #47 ? Advanced Care Plan Clinician documentation instruction: document at admission. [] I confirmed that the patient's Advance Care Plan is present, code status is documented, or surrogate decision maker is listed in the patient?s medical record. [SATISFIES [facility] PERFORMANCE] If Yes, Stop Here [] The patient?s Advance Care plan is not present because: (select) [MIPS PERFORMANCE EXCEPTION/EXCLUSION] [] I confirmed today that the patient does not wish or was not able to name a surrogate decision maker or provide an Advance Care Plan. [] Hospice care is currently being provided or has been provided this calendar year [] I did NOT confirm today the presence of an Advance Care Plan or surrogate decision maker documented within the patient's medical record. [DOES NOT SATISFY MIPS PERFORMANCE] #130 - Documentation of Current Medications in the Medical Record Clinician documentation instruction: use macro the first time you see a patient. [] I have utilized all available immediate resources to obtain, update, or review the patient?s current medications. [SATISFIES MIPS PERFORMANCE] If Yes, Stop Here [] The patient is not eligible for medication reconciliation; the patient is in an emergent medical situation where delaying treatment would jeopardize the patient?s health. [MIPS PERFORMANCE EXCEPTION/EXCLUSION] [] I did NOT confirm, update or review the patient's current list of medications today. [DOES NOT SATISFY MIPS PERFORMANCE] MIPS - CL Central Venous Catheter Placement Measure: #76 ? Prevention of Central Venous Catheter (CVC) ? Related Bloodstream Infection Clinician documentation instruction: use macro every time you place a central line. [] All elements of Maximal Sterile Barrier Technique, including hand hygiene, skin prep, and sterile ultrasound technique (if used) were followed. [SATISFIES MIPS PERFORMANCE] If Yes, Stop Here [] If ?No?, the medical reason all elements were NOT used for medical reason [] (ex. emergent condition). [] Maximal Sterile Barrier Technique was not followed, no reason provided [DOES NOT SATISFY MIPS PERFORMANCE] MIPS - DC Heart Failure Measures: #5 - Heart Failure (HF): Angiotensin-Converting Enzyme (RUBIN) Inhibitor or Angiotensin Receptor Ari (ARB) Therapy for Left Ventricular Systolic Dysfunction (LVSD) and #8 - Heart Failure (HF): Beta-Ari Therapy for Left Ventricular Systolic Dysfunction (LVSD) Clinician documentation instruction: use macro at every CHF discharge. [] The patient has current or prior documentation of left ventricular ejection fraction (LVEF) less than 40%, or moderate or severely depressed left ventricular systolic function. Answer both: [SATISFIES MIPS PERFORMANCE] [] The patient was prescribed or already taking an Angiotensin-Converting Enzyme (RUBIN) Inhibitor, or Angiotensin Receptor Ari (ARB). [] The patient was prescribed or already taking a beta-ari. If Yes to Both, Stop Here [] Patient not prescribed/taking: [MIPS PERFORMANCE EXCEPTION/EXCLUSION] [] RUBIN or ARB for medical/patient/system reason(s) including [] (ex. allergy, intolerance, contraindication) [] Beta-ari for medical/patient/system reason(s) including [] (ex. allergy, intolerance, contraindication) [] Patient not prescribed/taking: [DOES NOT SATISFY MIPS PERFORMANCE] [] RUBIN or ARB, no reason given [] Beta-ari, no reason given
--- NOTE | 2020-08-10 14:49 | PC.NURSE ---
Patient discharge education given to pt and spouse, discussed- echo, f/u appts, medications, safety, s/s of stroke, s/s of infection, reasons to seek medical attention. All questions answered. IV removed, intact, tolerated well. Tele removed, SPANISH INTERPRETER informed. All belongings packed and sent with pt, pt left via w/c accompanied by RN and pt's spouse to POV.
== END 2020-08-10 14:51 | disposition home or self-care (01) ==
LOC: ED 22:34 → AC 23:12
PROVIDERS: Admitting Provider Student in an Organized Health Care Education/Training Program; Emergency Provider Emergency Medicine; Referring Provider Emergency Medicine; Visit Provider Student in an Organized Health Care Education/Training Program
DX: R55 Syncope and collapse (principal); E87.6 Hypokalemia; I10 Essential (primary) hypertension; E78.5 Hyperlipidemia, unspecified; Z20.822 Contact with and (suspected) exposure to COVID-19
CPT/HCPCS: 36415; 71045; 80048; 80053; 82550; 83735; 83880; 84100; 84484; 85025; 85610; 87635; 93005; 93010; 93306; 96365; 97161; 99284; G0378; J3480

== ENCOUNTER 2021-01-18 16:59 | Emergency (ER) | payer OTHER, SELFPAY ==
[2021-01-18] VITALS (14 sets, daily range): BP systolic 155–190; BP diastolic 70–106; PULSE 55–94; RESP 17–50; TEMP 36.6; O2SAT 96–99; BMI 25.6
--- NOTE | 2021-01-18 17:06 | DI.CT.S_ITS ---
PROCEDURE: CT CERVICAL SPINE WO CON INDICATIONS: fall pain TECHNIQUE: Noncontrast 3 mm thick sections acquired from the skull base to the T4 level. Sagittal and coronal reformats were then constructed. For radiation dose reduction, the following was used: automated exposure control, adjustment of mA and/or kV according to patient size. COMPARISON: [facility], CT, CT HEAD/BRAIN WO CON, 01/18/2021, 17:28. FINDINGS: Image quality: Excellent. Bones: No acute cervical spine fracture or traumatic malalignment. Advanced degenerative changes of the atlanto dens interval with large geode in the dens. 1 millimeter anterolisthesis of C2 on C3, C3 on C4, and C4 on C5, likely from facet arthrosis. There is multilevel intervertebral disc height loss throughout the cervical spine with associated facet arthrosis. Visualized superior ribs are intact. Soft tissues: Prevertebral soft tissues are normal in thickness. No paravertebral hematomas. No apical pneumothoraces. IMPRESSION: 1. No acute cervical spine fracture or traumatic malalignment. 2. Multilevel cervical spondylosis and facet arthrosis. There is also mild degenerative spondylolisthesis at the C2-3, C4-5, and C5-6 levels. 3. Degenerative change at the atlantodens interval creates a large geode in the dens which may increase overall risk of the occurrence of a dens fracture. Dictated by: João Whitfield M.D. on 01/18/2021 at 16:52 Approved by: João Whitfield M.D. on 01/18/2021 at 16:58
--- NOTE | 2021-01-18 17:06 | DI.CT.S_ITS ---
PROCEDURE: CT HEAD/BRAIN WO CON INDICATIONS: fall syncope TECHNIQUE: Noncontrast 4.5 mm thick angled axial sections acquired from the foramen magnum to the vertex, with coronal and sagittal reformats. For radiation dose reduction, the following was used: automated exposure control, adjustment of mA and/or kV according to patient size. COMPARISON: None. FINDINGS: Image quality: Excellent. CSF spaces: Basal cisterns are patent. No extra-axial fluid collections. The ventricles are symmetric in size and shape. Brain: No intracranial bleeds or masses. There is cerebral volume loss for age, with resultant ventricular and sulcal prominence. There are periventricular and deep white matter chronic small vessel ischemic changes. There is intracranial internal carotid artery atherosclerosis. Skull and face: Calvarium and visualized facial bones appear intact, without suspicious lesions. Sinuses: Visualized sinuses and mastoids are clear. IMPRESSION: No acute intracranial abnormality. Age related parenchymal white matter changes. Dictated by: João Whitfield M.D. on 01/18/2021 at 16:50 Approved by: João Whitfield M.D. on 01/18/2021 at 16:52
[2021-01-18 17:44] LABS: Add Manual Diff / Slide Review NO; Basophils Absolute Auto 100 /uL (0-100); Basophils Percent Auto 0.9 % (0-2); Eosinophils Absolute Auto 100 /uL (0-450); Eosinophils Percent Auto 0.9 % (2-4); Hematocrit 41.4 % (36-46); Hemoglobin 13.7 g/dL (12.0-16.0); Lymphocytes Absolute Auto 3300 /uL (1100-4500); Lymphocytes Percent Auto 29.9 % (25-40); Mean Corpuscular HGB Conc 33.2 % (30-36); Mean Corpuscular Hemoglobin 29.7 PG (26-34); Mean Corpuscular Volume 89.6 fL (80-100); Monocytes Absolute Auto 600 /uL (0-900); Monocytes Percent Auto 5.8 % (3-14); Neutrophils Absolute Auto 6800 /uL (1500-7000); Neutrophils Percent Auto 62.5 % (50-75); Platelet Count 337 X10^3/uL (150-400); Red Blood Cell Count 4.62 X10^6/uL (4.0-5.2); Red Cell Distribution Width 13.9 % (11.6-14.8); White Blood Cell Count 10.9 X10^3/uL (4.5-11.0)
[2021-01-18 17:50] LABS: Alanine Aminotransferase 19 IU/L (<35); Albumin 4.5 g/dL (3.5-5.0); Albumin Globulin Ratio 1.7 (1.0-2.8); Alkaline Phosphatase 69 U/L (38-126); Aspartate Aminotransferase 34 IU/L (14-36); Bilirubin Total 0.3 mg/dL (0.2-1.3); Blood Urea Nitrogen 20 mg/dL (7-17); Calcium 10.1 mg/dL (8.4-10.2); Carbon Dioxide 29 mmol/L (22-32); Chloride 101 mmol/L (98-107); Creatine Kinase 95 U/L (30-135); Estimated Glomerular Filt Rate > 60.0 mL/min (>60); Globulin 2.7 g/dL (1.7-4.1); Glucose 123 mg/dL (80-110); HEMOLYSIS < 15 (0-50); Lipase 77 U/L (23-300); Potassium 3.7 mmol/L (3.4-5.1); Sodium 139 mmol/L (137-145); Total Protein 7.2 g/dL (6.3-8.2)
[2021-01-18 18:01] LABS: NT-proBNP (BNP-Adult 18+) 362 pg/mL (<450); Troponin I < 0.012 ng/mL (0.01-0.034)
--- NOTE | 2021-01-18 18:19 | ED.FALL ---
HPI - Fall General Chief Complaint: Fall Stated Complaint: Dizzy Time Seen by Provider: 01/18/21 17:05 Source: patient and EMS Mode of arrival: EMS History of Present Illness HPI Narrative: 85-year-old female never smoker with history of hypertension and prior syncopal episodes presents with family in the chief complaint of a dizzy and lightheaded episode which likely resulted in a brief syncope causing her to fall off a chair and strike her head just prior to arrival. She states she had a poor night of sleep and woke up earlier than normally. She felt tired this morning and had a few pancakes and no water. For lunch she had some pie and a beer. She was in a [place]-sitting on a low bench watching people work on a car when she felt dizzy and lightheaded and fell backwards, bystander state they think she probably was unconscious very briefly but she very quickly woke up and complained only of some midline neck pain. She denies any chest pain, palpitations or shortness of breath. She has had no nausea, vomiting or diarrhea. She denies any fever or chills. She takes no blood thinners. She was activated as a modified trauma given fall, her age and possibility of injury. Related Data Home Medications Medication Instructions Recorded Confirmed acetaminophen 500 mg tablet 500 mg [place] Q4HP #0 01/15/13 08/10/20 (Tylenol Extra Strength) amlodipine 10 mg tablet (Norvasc) 10 mg PO QDAY #0 01/15/13 08/10/20 losartan 100 mg tablet 25 mg PO QDAY #0 01/15/13 08/10/20 Allergies Allergy/AdvReac Type Severity Reaction Status Date / Time hydrochlorothiazide Allergy Unknown HANDS/FEET Verified 09/13/18 12:24 [HYDROCHLOROTHIAZIDE] PEELED Sulfa (Sulfonamide Allergy Unknown RASH Verified 09/13/18 12:24 Antibiotics) [SULFA (SULFONAMIDE ANTIBIOTICS)] Review of Systems Review of Systems Narrative: GENERAL: Denies chills, fatigue, malaise, fever, sweats. HEENT: Denies sinus pain, ear pain, sore throat, difficulty swallowing, dizziness. RESPIRATORY: Denies dyspnea, cough, wheezing, hemoptysis, sputum. CARDIOVASCULAR: See HPI GASTROINTESTINAL: Denies nausea, vomiting, abdominal pain, diarrhea, constipation, melena. : Denies dysuria, frequency, incontinence, hematuria, urinary retention. MUSCULOSKELETAL: denies weakness, joint pain, or bony pain SKIN: Denies rash, skin lesions, or other NEUROLOGIC: See HPI. PSYCHIATRIC: No concerning psychosocial issues. 12 point review of systems is negative except for those stated above Patient History Social History household members: spouse Smoking Status: Never smoker alcohol intake: current Smoking Status: Never smoker alcohol intake frequency: a few times a month Alcohol type: beer and wine Substance Use Type: does not use Exam Narrative Exam Narrative: GENERAL: [85] year old patient appears stated age. Well-developed patient, in mild distress. GCS 15 HEAD: Atraumatic. Normocephalic. EYES: Pupils equal round and reactive. Extraocular motions intact. No scleral icterus. No injection or drainage. ENT: Nose without bleeding, purulent drainage. Throat without erythema, tonsillar hypertrophy or exudate. Airway patent. NECK: Trachea midline. Non tender CARDIOVASCULAR: Regular rate and rhythm without murmurs, gallops, or rubs. RESPIRATORY: Clear to auscultation. Breath sounds equal bilaterally. No wheezes, rales, or rhonchi. GASTROINTESTINAL: Abdomen soft, non-tender, nondistended. EXTREMITIES: No edema or joint tenderness. BACK: Nontender without deformity or crepitance. No flank tenderness. NEURO: AOx3. SKIN: No rash or erythema of visible areas Initial Vital Signs Initial Vital Signs: Vital Signs Pulse Oximetry 97 01/18/21 17:04 Course Orders Ordered: ED Orders 01/18/21 17:00 Complete Blood Count AUTO DIFF Stat Comprehensive Metabolic Panel Stat Lipase Stat NT-proBNP (BNP-Adult 18+) Stat Troponin & CK Cardiac Panel Stat 01/18/21 17:06 CT cervical spine wo con Stat CT head/brain wo con Stat 01/18/21 17:28 EKG-12 Lead Stat Discontinued Medications Sodium Chloride (Normal Saline 0.9%) 500 mls @ 1,000 mls/hr IV BOLUS ONE Stop: 01/18/21 19:22 Last Infusion: 01/18/21 19:26 Dose: 0 mls/hr Documented by: Admin: 01/18/21 18:58 Dose: 1,000 mls/hr Documented by: TIAGO Vital Signs Vital signs: Vital Signs - 8 hr 01/18/21 17:04 01/18/21 17:28 01/18/21 17:37 Temperature 98 F Pulse Rate 55 L 56 L Pulse Rate [Orthostatic Lying] Pulse Rate [Orthostatic Sitting] Pulse Rate [Orthostatic Standing] Respiratory Rate 18 Blood Pressure 155/73 H Blood Pressure [Orthostatic Lying] Blood Pressure [Orthostatic Sitting] Blood Pressure [Orthostatic Standing] Pulse Oximetry 97 97 96 01/18/21 17:45 01/18/21 18:00 01/18/21 18:01 Temperature Pulse Rate 58 L 60 57 L Pulse Rate [Orthostatic Lying] Pulse Rate [Orthostatic Sitting] Pulse Rate [Orthostatic Standing] Respiratory Rate 20 20 20 Blood Pressure 169/74 H 167/106 H Blood Pressure [Orthostatic Lying] Blood Pressure [Orthostatic Sitting] Blood Pressure [Orthostatic Standing] Pulse Oximetry 98 98 99 01/18/21 18:30 01/18/21 19:00 01/18/21 19:27 Temperature Pulse Rate 65 62 90 Pulse Rate [Orthostatic Lying] Pulse Rate [Orthostatic Sitting] Pulse Rate [Orthostatic Standing] Respiratory Rate 20 20 18 Blood Pressure 163/80 H 161/70 H 174/87 H Blood Pressure [Orthostatic Lying] Blood Pressure [Orthostatic Sitting] Blood Pressure [Orthostatic Standing] Pulse Oximetry 98 97 97 01/18/21 19:28 01/18/21 19:29 01/18/21 19:33 Temperature Pulse Rate 88 93 H Pulse Rate [Orthostatic Lying] 83 Pulse Rate [Orthostatic Sitting] 84 Pulse Rate [Orthostatic Standing] 93 H Respiratory Rate 17 50 H Blood Pressure 175/89 H 189/94 H Blood Pressure [Orthostatic Lying] 174/87 H Blood Pressure [Orthostatic Sitting] 175/89 H Blood Pressure [Orthostatic Standing] 189/94 H Pulse Oximetry 97 97 01/18/21 19:37 01/18/21 19:38 Temperature Pulse Rate 79 94 H Pulse Rate [Orthostatic Lying] Pulse Rate [Orthostatic Sitting] Pulse Rate [Orthostatic Standing] Respiratory Rate 32 H 28 H Blood Pressure 190/91 H Blood Pressure [Orthostatic Lying] Blood Pressure [Orthostatic Sitting] Blood Pressure [Orthostatic Standing] Pulse Oximetry 96 96 MDM - Fall Lab Data Result diagrams: 01/18/21 17:00 01/18/21 17:00 Labs: Lab Results 01/18/21 01/18/21 Range/Units 17:00 17:00 WBC 10.9 (4.5-11.0) X10^3/uL RBC 4.62 (4.0-5.2) X10^6/uL Hgb 13.7 (12.0-16.0) g/dL Hct 41.4 (36-46) % MCV 89.6 (80-100) fL MCH 29.7 (26-34) PG MCHC 33.2 (30-36) % RDW 13.9 (11.6-14.8) % Plt Count 337 (150-400) X10^3/uL Neut % (Auto) 62.5 (50-75) % Lymph % (Auto) 29.9 (25-40) % [place] % (Auto) 5.8 (3-14) % Eos % (Auto) 0.9 L (2-4) % Baso % (Auto) 0.9 (0-2) % Neut # (Auto) 6800 (9124-3065) /uL Lymph # (Auto) 3300 (2149-7277) /uL [place] # (Auto) 600 (0-900) /uL Eos # (Auto) 100 (0-450) /uL Baso # (Auto) 100 (0-100) /uL Sodium 139 (137-145) mmol/L Potassium 3.7 (3.4-5.1) mmol/L Chloride 101 (98-107) mmol/L Carbon Dioxide 29 (22-32) mmol/L BUN 20 H (7-17) mg/dL Creatinine 0.77 (0.52-1.04) mg/dL Estimated GFR > 60.0 (>60) mL/min BUN/Creatinine Ratio 26.0 H (6-22) Glucose 123 H (80-110) mg/dL Calcium 10.1 (8.4-10.2) mg/dL Total Bilirubin 0.3 (0.2-1.3) mg/dL AST 34 (14-36) IU/L ALT 19 (<35) IU/L Alkaline Phosphatase 69 (38-126) U/L Total Creatine Kinase 95 (30-135) U/L CK-MB (CK-2) TNP CK-MB (CK-2) Rel Index TNP Troponin I < 0.012 (0.01-0.034) ng/mL NT-Pro-B Natriuret Pep 362 (<450) pg/mL Total Protein 7.2 (6.3-8.2) g/dL Albumin 4.5 (3.5-5.0) g/dL Globulin 2.7 (1.7-4.1) g/dL Albumin/Globulin Ratio 1.7 (1.0-2.8) Lipase 77 (23-300) U/L Urine Dip Bedside Urine Glucose Negative Bedside Urine Bilirubin - Negative Bedside Urine Ketone - Negative Urine Specific [place] 1.015 Bedside Urine Occult Blood - Negative Bedside Urine pH 6.5 Bedside Urine Protein - Negative Bedside Urine Urobilinogen - Negative Bedside Urine Nitrite - Negative Bedside Urine Leukocytes - Negative Esterase Imaging Data CT scan - head: Radiologist's Impression: Peyton Garcia 85 F [address] [id number] Scan ReportSigned Patient: Peyton Garcia KMR#: [id number]: [id number]:[id number]/Sex: 85 / FDate of Service: 01/18/21Loc: EDAccession Number: [id number] Procedure: CT head/brain wo con Ordering Provider: Anna Marie Cesar D.O. PROCEDURE: CT HEAD/BRAIN WO CON INDICATIONS: fall syncope TECHNIQUE: Noncontrast 4.5 mm thick angled axial sections acquired from the foramen magnum to the vertex, with coronal and sagittal reformats. For radiation dose reduction, the following was used: automated exposure control, adjustment of mA and/or kV according to patient size. COMPARISON: None. FINDINGS: Image quality: Excellent. CSF spaces: Basal cisterns are patent. No extra-axial fluid collections. The ventricles are symmetric in size and shape. Brain: No intracranial bleeds or masses. There is cerebral volume loss for age, with resultant ventricular and sulcal prominence. There are periventricular and deep white matter chronic small vessel ischemic changes. There is intracranial internal carotid artery atherosclerosis. Skull and face: Calvarium and visualized facial bones appear intact, without suspicious lesions. Sinuses: Visualized sinuses and mastoids are clear. IMPRESSION: No acute intracranial abnormality. Age related parenchymal white matter changes. Dictated by: João Whitfield M.D. on 01/18/2021 at 16:50 Approved by: João Whitfield M.D. on 01/18/2021 at 16:52 CT - cervical spine: Radiologist's Impression: [address] [id number] Scan ReportSigned Patient: Peyton Garcia KMR#: [id number]: [id number]:[id number]/Sex: 85 / FDate of Service: 01/18/21Loc: EDAccession Number: [id number] Procedure: CT cervical spine wo con Ordering Provider: Anna Marie Cesar D.O. PROCEDURE: CT CERVICAL SPINE WO CON INDICATIONS: fall pain TECHNIQUE: Noncontrast 3 mm thick sections acquired from the skull base to the T4 level. Sagittal and coronal reformats were then constructed. For radiation dose reduction, the following was used: automated exposure control, adjustment of mA and/or kV according to patient size. COMPARISON: [facility], CT, CT HEAD/BRAIN WO CON, 01/18/2021, 17:28. FINDINGS: Image quality: Excellent. Bones: No acute cervical spine fracture or traumatic malalignment. Advanced degenerative changes of the atlanto dens interval with large geode in the dens. 1 millimeter anterolisthesis of C2 on C3, C3 on C4, and C4 on C5, likely from facet arthrosis. There is multilevel intervertebral disc height loss throughout the cervical spine with associated facet arthrosis. Visualized superior ribs are intact. Soft tissues: Prevertebral soft tissues are normal in thickness. No paravertebral hematomas. No apical pneumothoraces. IMPRESSION: 1. No acute cervical spine fracture or traumatic malalignment. 2. Multilevel cervical spondylosis and facet arthrosis. There is also mild degenerative spondylolisthesis at the C2-3, C4-5, and C5-6 levels. 3. Degenerative change at the atlantodens interval creates a large geode in the dens which may increase overall risk of the occurrence of a dens fracture. Dictated by: João Whitfield M.D. on 01/18/2021 at 16:52 Approved by: João Whitfield M.D. on 01/18/2021 at 16:58 [facility] Narrative Medical decision making narrative: Patient is very reassuring physical exam, labs and imaging. She is at baseline and asymptomatic for the majority of her visit. Multiple diagnoses considered including dehydration, fatigue, poor diet, 80 rhythm me a and others. Patient has no significant abnormalities in her labs, story seems most consistent with a few contributing item such as, fatigue, lack of sleep and poor oral intake. We discussed the importance of close follow-up, self-care, appropriate hydration. We discussed return precautions at length with patient and family. All questions have been answered to their apparent satisfaction Discharge Plan Departure Patient Disposition: Home Clinical Impression: Syncope and collapse Instructions: DI for Syncope in Adults (Fainting) Activity Restrictions/Additional Instructions: *You have been diagnosed with [possible fainting spell and dizziness, with very reassuring story and physical exam. This is most likely due to multiple contributing factors such as poor sleep and diet] *What to do: *Please continue to take your regular medications as directed. [ ] New medication prescriptions sent to your pharmacy: [ ] [ ] New medication written as a paper prescription [ x] No new medications given *Please follow up with your primary care provider in 2-3 days, call for an appointment. Let them know you were seen in the Emergency Department and that we ask that you be seen in follow up. We will electronically transmit a record of today's note if your PCP is in our system *If you do not have a primary care provider please contact the [facility] Resource line at [phone]. They will ask some questions about your medical history and help get you set up with a doctor in the community. *Return to Emergency Department if you should have any new, worsening or concerning symptoms, such as [fever greater than 101 F, shaking chills, worsening pain, persistent vomiting or other bothersome symptoms] Prescriptions: No Action acetaminophen [Tylenol Extra Strength] 500 MG tablet 500 mg [place] Q4HP Qty: 0 RF: 0 amlodipine [Norvasc] 10 MG tablet 10 mg PO QDAY Qty: 0 RF: 0 losartan 100 MG tablet 25 mg PO QDAY Qty: 0 RF: 0 Referrals: Suha Do MD [Primary Care Provider] -
[2021-01-18] MEDS: SODIUM CHLORIDE 0.9% 500 ML 1000 ML IV (18:58)
== END 2021-01-18 19:57 | disposition home or self-care (01) ==
PROVIDERS: Emergency Medicine; Emergency Provider Emergency Medicine; PCP Student in an Organized Health Care Education/Training Program
DX: R55 Syncope and collapse (principal); M54.2 Cervicalgia; R42 Dizziness and giddiness; W19.XXXA Unspecified fall, initial encounter
CPT/HCPCS: 36415; 70450; 72125; 80053; 81003; 82550; 83690; 83880; 84484; 85025; 93005; 99284

== ENCOUNTER → 2024-02-06 16:20 | Outpatient (CLI) | payer OTHER, SELFPAY ==
--- NOTE | 2024-02-06 | DI.RAD.S_ITS ---
PROCEDURE: XR KNEE RT 3V INDICATIONS: RIGHT KNEE PAIN TECHNIQUE: 3 views of the knee were acquired. COMPARISON: None. FINDINGS: Bones: There are no osseous abnormalities. Joints: The tibialfemoral and patellofemoral joints show severe degeneration. moderate effusion appreciated. Soft tissues: Normal IMPRESSION: Severe patellofemoral and tibiofemoral degeneration. Moderate patellofemoral effusion. . Dictated by: Christiano Elizabeth M.D. on 02/07/2024 at 8:25 Approved by: Christiano Elizabeth M.D. on 02/07/2024 at 8:26
== END ==
PROVIDERS: PCP Student in an Organized Health Care Education/Training Program; Referring Provider Family Medicine; Visit Provider Family Medicine
DX: M25.561 Pain in right knee (principal); M25.461 Effusion, right knee; M17.11 Unilateral primary osteoarthritis, right knee
CPT/HCPCS: 73562

== ENCOUNTER → 2024-09-24 10:36 | Outpatient (CLI) | payer MEDICARE, SELFPAY ==
[2024-09-24 12:04] LABS: Add Manual Diff / Slide Review NO; Basophils Absolute Auto 100 /uL (0-100); Basophils Percent Auto 0.7 % (0-2); Eosinophils Absolute Auto 100 /uL (0-450); Eosinophils Percent Auto 0.7 % (2-4); Hematocrit 39.9 % (36-46); Hemoglobin 13.2 g/dL (12.0-16.0); Lymphocytes Absolute Auto 2300 /uL (1100-4500); Mean Corpuscular HGB Conc 33.2 % (30-36); Mean Corpuscular Volume 87.2 fL (80-100); Monocytes Absolute Auto 800 /uL (0-900); Monocytes Percent Auto 7.4 % (3-14); Neutrophils Absolute Auto 7200 /uL (1500-7000); Neutrophils Percent Auto 69.2 % (50-75); Platelet Count 327 X10^3/uL (150-400); Red Blood Cell Count 4.57 X10^6/uL (4.0-5.2); Red Cell Distribution Width 15.2 % (11.6-14.8); White Blood Cell Count 10.3 X10^3/uL (4.5-11.0)
[2024-09-24 12:27] LABS: Alanine Aminotransferase 14 IU/L (<35); Albumin 4.4 g/dL (3.5-5.0); Albumin Globulin Ratio 1.8 (1.0-2.8); Alkaline Phosphatase 82 U/L (38-126); Aspartate Aminotransferase 23 IU/L (14-36); BUN Creatinine Ratio 20.3 (6-22); Bilirubin Total 0.5 mg/dL (0.2-1.3); Blood Urea Nitrogen 16 mg/dL (7-17); Calcium 9.8 mg/dL (8.4-10.2); Carbon Dioxide 27 mmol/L (22-32); Chloride 102 mmol/L (98-107); Estimated Glomerular Filt Rate > 60 mL/min (>60); Globulin 2.4 g/dL (1.7-4.1); Glucose 82 mg/dL (70-99); HEMOLYSIS < 15 (0-50); Potassium 4.3 mmol/L (3.4-5.1); Sodium 139 mmol/L (137-145); Total Protein 6.8 g/dL (6.3-8.2)
== END ==
PROVIDERS: PCP Family Medicine; Referring Provider Family Medicine; Visit Provider Family Medicine
DX: I10 Essential (primary) hypertension (principal)
CPT/HCPCS: 36415; 80053; 85025

== ENCOUNTER → 2025-02-02 13:39 | Outpatient (CLI) | payer MEDICARE, SELFPAY | PROVIDERS: PCP Family Medicine; Visit Provider Chiropractor | DX: R30.0 Dysuria (principal) | CPT/HCPCS: 87086 ==

== ENCOUNTER → 2025-03-08 12:23 | Outpatient (CLI) | payer MEDICARE, SELFPAY ==
[2025-03-08 14:23] LABS: Appearance Urine UA SL CLOUDY; Bilirubin Urine UA NEGATIVE (NEGATIVE); Color Urine UA YELLOW; Glucose Urine UA NEGATIVE (Negative); Ketones Urine UA TRACE (NEGATIVE); Leukocyte Esterase Urine UA 1+ (NEGATIVE); Nitrite Urine UA NEGATIVE (Negative); Occult Blood Urine UA NEGATIVE (Negative); Protein Urine UA NEGATIVE (Negative); Specific Gravity Urine UA 1.010 (1.000-1.035); Urobilinogen Urine UA 0.2 E.U./dL (0.2)
[2025-03-08 14:27] LABS: pH Urine UA 7.0 (4.5-8.0)
[2025-03-08 14:30] LABS: Culture Indicated Urine Specimen Cultured
== END ==
PROVIDERS: PCP Family Medicine; Referring Provider Family Medicine; Visit Provider Family Medicine
DX: R35.0 Frequency of micturition (principal)
CPT/HCPCS: 81001; 87086